=== PATIENT | male | born 1960 | race Asian ===

== ENCOUNTER 2022-02-25 13:31 | Emergency (ER) | payer OTHER ==
[~2022-02-25] VITALS: Ht 165.1 cm; Wt 78.0 kg
[2022-02-25] MEDS ORDERED: TETANUS, DIPHTHERIA, PERTUSSIS VAC/PF 0.5ML (>10YR OLD) IM ONE (16:15)
[2022-02-25] MEDS ORDERED: BACITRACIN/POLYMYXIN B SULFATE OINT 15GM TOP ONE (16:15)
[2022-02-25] MEDS ORDERED: BO1 TP (16:19)
[2022-02-25 18:00] VITALS: BP 140/70
== END 2022-02-25 18:27 | disposition home or self-care (01) ==
LOC: ER 13:39
DX: T24.211A Burn of second degree of right thigh, initial encounter (principal); T31.0 Burns involving less than 10% of body surface; X11.8XXA Contact with other hot tap-water, initial encounter; Y93.89 Activity, other specified; Y92.89 Other specified places as the place of occurrence of the external cause; Y99.8 Other external cause status; E78.00 Pure hypercholesterolemia, unspecified
CPT/HCPCS: 16020; 90471; 90715; 99283; Z7610